=== PATIENT | female | born 2000 ===

== ENCOUNTER 2025-11-18 16:11 | Outpatient (REF) | payer SELFPAY ==
--- OUTSIDE RECORDS SUMMARY | 2025-11-18 09:00 | XMS_ITS | Encounter Summary ---
Author Organization [facility] Address [address] [place] [address] Care Team Providers Care Technician Plant And Maintenance Name Role Phone Alyson Millard NP Primary Care Provider [phone] Reason for Referral * Imaging (Routine) - Authorized Specialty Diagnoses / Procedures Referred By Contac t Referred To Contact Radiology Diagnoses Abnormal uterine bleeding (AUB) Procedures US Pelvis Transvaginal Alyson Millard NP [address] [place] [address] Phone: tel: fax: [address] [phone] Phone: tel: fax: Referral ID Status Reason Start Date Expiration Date V isits Requested Visits Authorized [id number] Authorized 11/18/2025 11/18/2026 1 1 * Imaging (Routine) - Authorized Specialty Diagnoses / Procedures Referred By Contac t Referred To Contact Radiology Diagnoses Abnormal uterine bleeding (AUB) Procedures Us Pelvis complete Alyson Millard NP [address], [place] Phone: tel: fax: [address] [address] Phone: tel: fax: Referral ID Status Reason Start Date Expiration Date V isits Requested Visits Authorized [id number] Authorized 11/18/2025 11/18/2026 1 1 Reason for Visit * Reason Comments Blood in Urine Encounter Details Date Type Department Care Team ([facility] Contact Info) Description 11/18/2025 9:00 AM EST Office Visit [facility] [address] [place] [id number] Abnormal uterine bleeding (AUB) (Primary Dx) Social History Tobacco Use Types Packs/Day Years Used Date Smoking Tobacco: Never Smokeless Tobacco: Never Tobacco Cessation:Counseling Given: Not Answered Comments Unknown Sex and Gender Information Value Date Recorded Sex Assigned at Female 10/22/2025 1:36 PM EST Legal Sex Female 3:24 PM EDT Gender Identity Female 09/25/2025 3:26 PM EDT Sexual Orientation Straight 11/18/2025 8: 38 AM EST documented as of this encounter Last Filed Vital Signs Vital Sign Reading Time Taken Comments Blood Pressure 131/85 11/18/2025 9:11 AM EST Pulse 91 11/18/2025 9:11 AM EST Temperature 36.8 C (98.2 F) 11/18/2025 9:11 AM EST Respiratory Rate 18 11/18/2025 9:11 AM EST Oxygen Saturation 100% 11/18/2025 9:11 AM EST Inhaled Oxygen Concentration - - Weight 84 kg (185 lb 3.2 oz) 11/18/2025 9:11 AM EST Height - - Body Mass Index - - documented in this encounter Plan of Treatment Upcoming Encounters Date Type Department Care Team ([facility] Contact Info) Description 01/02/2026 9:30 AM EST Office Visit [facility] [address] [place] [phone] Alyson Millard NP [address] [place] [address] Scheduled Orders Name Type Priority Associated Diagnoses Orde r Schedule CBC auto differential Lab Routine Abnormal uterine bleeding (AUB) Expected: 11/18/2025 (Approximate), Expires: 11/18/2026 TSH W/Reflex to FT4 Lab Routine Abnormal uterine bleeding (AUB) Expected: 11/18/2025 (Approximate), Expires: 11/18/2026 Bacterial Vaginosis, Yeast and Trich Microbiology Routine Abnormal uterine bleeding (AUB) Ordered: 11/18/2025 Chlamydia/N. Gonorrhoeae RNA, TMA, Vagina Microbiology Routine Abnormal uterine bleeding (AUB) Ordered: 11/18/2025 Prolactin Lab Routine Abnormal uterine bleeding (AUB) Expected: 11/18/2025 (Approximate), Expires: 11/18/2026 LH Lab Routine Abnormal uterine bleeding (AUB) Expected: 11/18/2025 (Approximate), Expires: 11/18/2026 FSH Lab Routine Abnormal uterine bleeding (AUB) Expected: 11/18/2025, Expires: 11/18/2026 Us Pelvis complete Imaging Routine Abnormal uterine bleeding (AUB) Expected: 11/18/2025, Expires: 11/18/2026 US Pelvis Transvaginal Imaging Routine Abnormal uterine bleeding (AUB) Expected: 11/18/2025, Expires: 11/18/2026 documented as of this encounter Procedures Procedure Name Priority Date/Time Associated Diagnosis Comments POCT , URINE Routine 11/18/2025 9:47 AM EST Abnormal uterine bleeding (AUB) POCT URINALYSIS DIPSTICK Routine 11/18/2025 9:47 AM EST Abnormal uterine bleeding (AUB) documented in this encounter Results * POCT , urine manually resulted (11/18/2025 9:47 AM EST) Preg Test, Ur Negative Negative, Indeterminate, None Detected, Trace, 3+, Specimen unsatisfactory for evaluation, Weakly Positive, 1+, 2+ Urine 11/18/2025 9:47 AM EST [facility] WATERSHED ENGINEER POINT OF CARE TEST ENTER/EDIT O RDERABLES Final Result * (ABNORMAL) POCT urinalysis dipstick manually resulted (CPT 76044) (11/18/2025 9:47 AM EST) Color, UA Yellow Clarity, UA Clear Glucose, UA Negative Bilirubin, UA Negative Ketones, UA Negative Spec Grav, UA 1.020 Blood, UA Positive(A) Negative, None Detected Comment:moderate pH, UA 6.5 Protein, UA Negative Urobilinogen, UA 0.2 Leukocytes, UA Negative Negative, Rare, Trace, 1+ (17), 2+ (35), 3+ (70), Trace (15) Nitrite, UA Negative Negative, None Detected Urine (Urine, Random) 11/18/2025 9:47 AM EST Alyson Millard NP POINT OF CARE TEST ENTER/EDIT O RDERABLES Final Result documented in this encounter Visit Diagnoses Diagnosis Abnormal uterine bleeding (AUB)- Primary documented in this encounter Care Teams Technician Plant And Maintenance Relationship Specialty Start Date End Date Alyson Millard NP [address] [place] [phone] PCP - General Family Medicine 11/18/25 documented as of this encounter
--- OUTSIDE RECORDS SUMMARY | 2025-11-18 18:48 | XMS_ITS | Encounter Summary ---
Author Organization [employer] [facility] Address [address] [place] [address] Care Team Providers Care Sisal Picker Name Role Phone Alyson Millard BUFFING LINE SET UP WORKER Primary Care Provider [phone] Encounter Details Date Type Department Care Team (Latest Contact Info) Description 11/18/2025 Travel Social History Tobacco Use Types Packs/Day Years Used Date Smoking Tobacco: Never Smokeless Tobacco: Never Comments Unknown Sex and Gender Information Value Date Recorded Sex Assigned at Female 10/22/2025 1:36 PM EST Legal Sex Female 3:24 PM EDT Gender Identity Female 09/25/2025 3:26 PM EDT Sexual Orientation Straight 11/18/2025 8: 38 AM EST documented as of this encounter Plan of Treatment Upcoming Encounters Date Type Department Care Team (Late st Contact Info) Description 01/02/2026 9:30 AM EST Office Visit [facility] [address] [place] [address] Alyson Millard NP [address] [place] [address] documented as of this encounter Visit Diagnoses Not on filedocumented in this encounter Care Teams Sisal Picker Relationship Specialty Start Date End Date Alyson Millard NP [address] [place] [phone] PCP - General Family Medicine 11/18/25 documented as of this encounter
--- OUTSIDE RECORDS SUMMARY | 2025-11-18 18:48 | XMS_ITS | Clinical Summary ---
Author Organization [employer] Address [address] [place] [address] Care Team Providers Care Clothes Designer Name Role Phone Alyson Millard NP Primary Care Provider [phone] Allergies No known active allergies Medications ibuprofen 600 MG tabletIndication s:Abnormal uterine bleeding (AUB) Take 1 tablet (600 mg) by mouth 3 times daily for 10 days. 30 tablet 11/18/2025 Active Encounters Date Type Department Care Team Description 11/18/2025 9:00 AM EST Office Visit [facility] [address] [place] [phone] Abnormal uterine bleeding (AUB) (Primary Dx) 11/18/2025 Travel from Last 3 Months Social History Tobacco Use Types Packs/Day Years Used Date Smoking Tobacco: Never Smokeless Tobacco: Never Tobacco Cessation:Counseling Given: Not Answered Comments Unknown Sex and Gender Information Value Date Recorded Sex Assigned at Female 10/22/2025 1:36 PM EST Legal Sex Female 3:24 PM EDT Gender Identity Female 09/25/2025 3:26 PM EDT Sexual Orientation Straight 11/18/2025 8: 38 AM EST Last Filed Vital Signs Vital Sign Reading [...] - - Body Mass Index - - Plan of Treatment Upcoming Encounters Date Type Department Care Team ([facility] st Contact Info) Description 01/02/2026 9:30 AM EST Office Visit [facility] [address] [place] [address] Alyson Millard NP [address] [place] [address] Health Maintenance Due Date Last Done Comments Chlamydia and Gonorrhea Screening 2002 Depression Screening 2002 HIV Screening 2002 SDOH Screening 2002 Disability Screening 2002 Alcohol/Substance Use Screening 2014 Family Planning (PISQ) 2017 HPV Vaccines (1 - 3-dose series) 2017 Meningococcal B Vaccine (1 o f 2 - Standard) 2018 Hepatitis C Screening 2020 Hepatitis B Vaccines (1 of 3 - 19+ 3-dose series) 2021 Pap Smear 2023 COVID-19 Vaccine (1 - 2024-2 6 season) 2025 Tobacco Screening 11/18/2026 11/18/2025 DTaP/Tdap/Td Vaccines (2 - T d or Tdap) 09/02/2035 09/02/2025 Zoster Vaccines (1 of 2) 2052 RSV Patients and Pa tients Aged 60 years or older (1 - 1-dose 75+ series) 2077 Influenza Vaccine Completed 09/02/2025 HIB Vaccines Aged Out No longer eligi ble based on patient's age to complete this topic Hepatitis A Vaccines Aged Out No long er eligible based on patient's age to complete this topic IPV Vaccines Aged Out No longer eligi ble based on patient's age to complete this topic Meningococcal Vaccine Aged Out No marv eric eligible based on patient's age to complete this topic Pneumococcal Vaccine: Pediat rics (0 to 5 Years) and At-Risk Patients (6 to 49) Years Aged Out No longer eligi ble based on patient's age to complete this topic RSV under 20 months Aged Out No longe r eligible based on patient's age to complete this topic Rotavirus Vaccines Aged Out No longer eligible based on patient's age to complete this topic Procedures Procedure Name Priority Date/Time Associated Diagnosis Comments POCT , URINE Routine 11/18/2025 9:47 AM EST Abnormal uterine bleeding (AUB) POCT URINALYSIS DIPSTICK Routine 11/18/2025 9:47 AM EST Abnormal uterine bleeding (AUB) from Last 3 Months Results * POCT , urine manually resulted (11/18/2025 9:47 AM EST) Preg Test, Ur Negative Negative, Indeterminate, None Detected, Trace, 3+, Specimen unsatisfactory for evaluation, Weakly Positive, 1+, 2+ Urine 11/18/2025 9:47 AM EST Pending sale to [facility] POINT OF CARE TEST ENTER/EDIT O RDERABLES Final Result * (ABNORMAL) POCT urinalysis dipstick manually resulted (CPT 90446) (11/18/2025 9:47 AM EST) Color, UA Yellow [...] Urine (Urine, Random) 11/18/2025 9:47 AM EST Pending sale to [facility] POINT OF CARE TEST ENTER/EDIT O RDERABLES Final Result from Last 3 Months Insurance [employer] F[employer] Care Teams Clothes Designer Relationship Specialty Start Date End Date Alyson Millard NP [address] [place] [phone] PCP - General Family Medicine 11/18/25
[2025-11-18 22:37] LABS: Bacterial Vaginosis PCR POSITIVE (Negative); Candida Group PCR NOT DETECTED (Not Detect); Candida glab krusei PCR NOT DETECTED (Not Detect); Trichomonas vaginalis PCR NOT DETECTED (Not Detect)
[2025-11-18 23:08] LABS: CT PCR NOT DETECTED (Not Detect.); NG PCR NOT DETECTED (Not Detect.)
== END 2025-11-18 16:12 | disposition home or self-care (01) ==
LOC: HO.HHCLNP 16:11
PROVIDERS: Visit Provider Nurse Practitioner
DX: N93.9 Abnormal uterine and vaginal bleeding, unspecified (principal); Z20.2 Contact with and (suspected) exposure to infections with a predominantly sexual mode of transmission
CPT/HCPCS: 81515; 87491; 87591